=== PATIENT | male | born 1945 | race Caucasian/White ===

== ENCOUNTER 2020-11-11 19:05 | Inpatient (IN) | payer MEDICARE ==
[2020-11-11 19:46] LABS: #Monocytes 0.2 10x3/uL (0.0-1.1); #Neutrophils 11.2 10x3/uL (1.5-8.4); %Basophils 0.3 % (0.0-2.0); %Eosinophils 0.1 % (0.0-6.0); %Monocytes 1.2 % (0.0-10.0); Hemoglobin 15.2 g/dL (13.5-17.5); Mean Corpuscular HGB CONC 33.5 g/dL (32.0-36.0); Mean Corpuscular Hemoglobin 33.7 pg (27.0-33.0); Mean Corpuscular Volume 100.7 fl (81.2-95.1); Mean Platelet Volume 9.8 fl (7.4-10.4); Platelet Count 143 10x3/uL (150-450); RBC Distribution Width 16.7 % (11.5-14.5); Red Blood Cell (RBC) Count 4.51 10x6/uL (4.32-5.72); White Blood Cell (WBC) Count 12.1 10x3/uL (3.5-10.5)
[2020-11-11] MEDS ORDERED: Furosemide 100 MG/10 ML VIAL ONE (19:47)
[2020-11-11] MEDS ORDERED: Diltiazem 125 MG/25 ML ONE (19:48)
[2020-11-11 19:53] LABS: Actual Bicarbonate (HCO3v) 19 mEq/L (22-28); Base Excess -5.3 mEq/L (-2.0 to +3.0); Chloride (VBG) 106 mmol/L (98-106); Hemoglobin (Hb) 16.2 g/dL (12.6-17.4); Potassium (VBG) 4.44 mmol/L (3.70-5.30); Puncture Site Other Site; Sodium 137.9 mmol/L (133-146); pH (venous) 7.37 (7.32-7.43)
[2020-11-11 19:58] LABS: ALT (SGPT) Less than 6 U/L (8-55); AST (SGOT) 30 U/L (5-34); Albumin 3.2 g/dL (3.4-4.8); Alkaline Phosphatase 182 U/L (40-110); Anion Gap 18 mmol/L (10-20); BUN (Urea Nitrogen) 17 mg/dL (8.4-25.7); Calc. Creatinine Clearance 0 mL/min (70-130); Calcium 8.9 mg/dL (7.8-10.44); Carbon Dioxide 17 mmol/L (23-31); Chloride 107 mmol/L (98-107); Globulin 3.9 g/dL (2.4-3.5); Glucose 99 mg/dL (83-110); Potassium 4.6 mmol/L (3.5-5.1); Protein, Total 7.1 g/dL (5.8-8.1); Sodium 137 mmol/L (136-145)
[2020-11-11] MEDS ORDERED: cefTRIAXone\\ROCEPHIN 2 GM VIAL ONE (19:59)
[2020-11-11] MEDS ORDERED: Nitroglycerin 2% Ointment 1 INCH/1 GM Packet ONE (19:59)
[2020-11-11] MEDS ORDERED: Azithromycin 500 MG VIAL ONE (19:59)
[2020-11-11 20:28] LABS: INR-International Normal Ratio 1.3; PTT 26.7 sec (22.0-33.0); Prothrombin Time 13.9 sec (9.5-12.1)
[2020-11-11 20:49] LABS: SARS-CoV-2 NAA Rapid Test Not Detected (NotDetected)
[2020-11-11] MEDS ORDERED: Vancomycin HCl 500 MG VIAL ONE (20:52)
[2020-11-11 21:07] LABS: Bilirubin Neg (Negative); Blood, Urine 10 (Negative); Clarity Clear (Clear); Glucose, Urine (Dipstick) Normal (Negative); Ketone, Urine Negative (Negative); Leukocyte 25 (Negative); Nitrite Negative (Negative); Protein, Urine (Dipstick) Negative (Neg-Trace); Specific Gravity, Urine 1.015 (1.002-1.036); Urobilinogen Normal mg/dL (Less than 2)
[2020-11-11 21:14] LABS: Bacteria/HPF Rare-Few HPF (None Seen); Mucous/LPF Rare LPF (<2+); RBC/HPF 0-3 HPF (0-3); Squamous Epithelial 0-3 HPF (0-3)
[2020-11-11 23:07] LABS: Lactic Acid 3.4 mmol/L (0.5-2.2)
[2020-11-11] MEDS ORDERED: Lidocaine Viscous Sol 2% 15 ml UD Cup ONE (23:11)
[2020-11-12] MEDS ORDERED: Diltiazem 125 MG in Sodium Chloride 0.9% 100 ML IVPB SCH (02:00)
[2020-11-12] MEDS ORDERED: Carbidopa/Levodopa 25-100 mg Tablet PO SCH (03:45)
[2020-11-12 04:01] VITALS: BMI 22.1
[2020-11-12] MEDS ORDERED: Cefepime 2 GM VIAL ONE ×2 (04:57→13:38)
[2020-11-12] MEDS: Cefepime 2 GM in Sodium Chloride 0.9% 100 ML IVPB SCH ×3 (05:00→20:24)
[2020-11-12 05:19] LABS: Magnesium 1.5 mg/dL (1.6-2.6)
[2020-11-12 05:21] LABS: Anion Gap 16 mmol/L (10-20); BUN (Urea Nitrogen) 17 mg/dL (8.4-25.7); Calc. Creatinine Clearance 75 mL/min (70-130); Calcium 8.4 mg/dL (7.8-10.44); Carbon Dioxide 17 mmol/L (23-31); Chloride 112 mmol/L (98-107); Glucose 83 mg/dL (83-110); Potassium 3.7 mmol/L (3.5-5.1); Sodium 141 mmol/L (136-145)
[2020-11-12 05:28] LABS: Troponin I 0.043 ng/mL (< 0.028)
[2020-11-12] MEDS ORDERED: Magnesium Sulfate/D5W 1 GM/100 ML BAG IVPB SCH (05:45)
[2020-11-12 05:48] LABS: Hemoglobin 13.3 g/dL (13.5-17.5); Mean Corpuscular HGB CONC 34.1 g/dL (32.0-36.0); Mean Corpuscular Volume 99.7 fl (81.2-95.1); Platelet Count 118 10x3/uL (150-450); RBC Distribution Width 16.6 % (11.5-14.5); Red Blood Cell (RBC) Count 3.91 10x6/uL (4.32-5.72); White Blood Cell (WBC) Count 22.9 10x3/uL (3.5-10.5)
[2020-11-12] MEDS ORDERED: Enoxaparin Sodium 80 MG/0.8 ML SYRINGE ONE (06:06)
[2020-11-12] MEDS: Enoxaparin Sodium 80 MG/0.8 ML SYRINGE SC SCH ×2 (06:15→17:18)
[2020-11-12] MEDS ORDERED: Melatonin 3 MG TAB PO SCH (06:30)
[2020-11-12 07:51] LABS: Lactic Acid 2.2 mmol/L (0.5-2.2)
[2020-11-12 08:01] LABS: Band 30 % (5-11); Monocytes 2 % (0-10)
[2020-11-12 08:02] LABS: Lymphocytes 1 % (21-51)
[2020-11-12 08:03] LABS: Burr Cells SLIGHT = 2-5 cells (100X) (0-1/hpf); Crenated RBC MODERATE= 6-15 cells (100X) (None Seen); Neutrophil 67 % (42-75); Poikilocytosis MODERATE=16-30 cells (100X) (0-5/hpf)
[2020-11-12 08:04] LABS: Large Platelets SLIGHT; Platelet Morphology Comment Appears Decreased; Toxic Granulation SLIGHT
[2020-11-12 08:07] LABS: MDiff Complete? YES; Manual Diff?? YES
[2020-11-12] MEDS ORDERED: Enoxaparin Sodium 40 MG/0.4 ML SYRINGE SC SCH (09:00)
[2020-11-12] MEDS ORDERED: Famotidine/PF 20 mg/2ml Vial ONE (09:26)
[2020-11-12] MEDS: Carbidopa/Levodopa CR 50-200 mg Tablet PO SCH ×3 (09:30→22:16)
[2020-11-12] MEDS: Famotidine/PF 20 mg/2ml Vial SLOW IVP SCH ×2 (09:30→20:24)
[2020-11-12] MEDS: Vancomycin HCl 1 GM in Sodium Chloride 0.9% 250 ML 250 ML IVPB SCH ×2 (10:35→22:15)
[2020-11-12] MEDS ORDERED: Metoprolol Tartrate 25 MG TAB ONE (11:41)
[2020-11-12] MEDS ORDERED: Metoprolol Tartrate 25 MG TAB PO SCH (11:45)
[2020-11-12] MEDS: Metoprolol Tartrate 25 MG TAB PO SCH (20:24)
[2020-11-13] MEDS: Cefepime 2 GM in Sodium Chloride 0.9% 100 ML IVPB SCH ×3 (04:41→19:53)
[2020-11-13 06:03] LABS: #Monocytes 0.5 10x3/uL (0.0-1.1); #Neutrophils 16.9 10x3/uL (1.5-8.4); %Basophils 0.2 % (0.0-2.0); %Eosinophils 0.1 % (0.0-6.0); %Lymphocytes 5.2 % (18.0-47.0); %Monocytes 2.7 % (0.0-10.0); %Neutrophils 91.1 % (40.0-75.0); Hemoglobin 14.9 g/dL (13.5-17.5); Mean Corpuscular HGB CONC 33.7 g/dL (32.0-36.0); Mean Corpuscular Hemoglobin 33.9 pg (27.0-33.0); Mean Corpuscular Volume 100.7 fl (81.2-95.1); Mean Platelet Volume 10.3 fl (7.4-10.4); Platelet Count 117 10x3/uL (150-450); Red Blood Cell (RBC) Count 4.39 10x6/uL (4.32-5.72); White Blood Cell (WBC) Count 18.5 10x3/uL (3.5-10.5)
[2020-11-13] MEDS ORDERED: Furosemide 20 MG/2 ML VIAL ONE (06:26)
[2020-11-13 06:29] LABS: Anion Gap 16 mmol/L (10-20); BUN (Urea Nitrogen) 23 mg/dL (8.4-25.7); Calc. Creatinine Clearance 70 mL/min (70-130); Calcium 8.8 mg/dL (7.8-10.44); Carbon Dioxide 17 mmol/L (23-31); Chloride 113 mmol/L (98-107); Glucose 109 mg/dL (83-110); Potassium 3.6 mmol/L (3.5-5.1); Sodium 142 mmol/L (136-145)
[2020-11-13] MEDS: Furosemide 40 MG/4 ML VIAL SLOW IVP SCH ×2 (06:29→15:10)
[2020-11-13] MEDS: Enoxaparin Sodium 80 MG/0.8 ML SYRINGE SC SCH ×2 (06:29→17:31)
[2020-11-13 08:48] LABS: Vancomycin, Trough 7.2 ug/mL
[2020-11-13] MEDS ORDERED: Potassium Chloride 20 MEQ TAB PO SCH (09:45)
[2020-11-13] MEDS: Metoprolol Tartrate 25 MG TAB PO SCH ×2 (10:55→20:02)
[2020-11-13] MEDS: Vancomycin HCl 1 GM in Sodium Chloride 0.9% 250 ML 250 ML IVPB SCH ×2 (10:56→20:01)
[2020-11-13] MEDS: Famotidine/PF 20 mg/2ml Vial SLOW IVP SCH ×2 (10:56→20:01)
[2020-11-13] MEDS: Carbidopa/Levodopa CR 50-200 mg Tablet PO SCH ×3 (11:05→20:01)
[2020-11-13 14:24] LABS: Magnesium 2.3 mg/dL (1.6-2.6)
[2020-11-13] MEDS ORDERED: Metoprolol Tartrate 25 MG TAB PO SCH ×2 (16:30→21:00)
[2020-11-13] MEDS: Apixaban 5 MG TAB PO SCH (20:02)
[2020-11-13] MEDS: Levofloxacin 750 mg/D5W 500 MG in Premix Bag 1 BAG IVPB SCH (23:52)
[2020-11-14] MEDS: Cefepime 2 GM in Sodium Chloride 0.9% 100 ML IVPB SCH ×3 (04:38→21:00)
[2020-11-14] MEDS ORDERED: Furosemide 20 MG/2 ML VIAL SLOW IVP SCH (06:00)
[2020-11-14] MEDS ORDERED: Spironolactone 25 MG TAB PO SCH (08:00)
[2020-11-14] MEDS: Vancomycin HCl 1 GM in Sodium Chloride 0.9% 250 ML 250 ML IVPB SCH ×2 (08:45→22:28)
[2020-11-14] MEDS: Famotidine 20 MG TAB PO SCH ×2 (08:45→21:02)
[2020-11-14] MEDS: Carbidopa/Levodopa CR 50-200 mg Tablet PO SCH ×3 (08:46→21:03)
[2020-11-14] MEDS: Spironolactone 25 MG TAB PO SCH (08:46)
[2020-11-14] MEDS: Metoprolol Tartrate 25 MG TAB PO SCH ×2 (08:46→22:28)
[2020-11-14] MEDS: Apixaban 5 MG TAB PO SCH ×2 (08:46→21:02)
[2020-11-14] MEDS: Potassium Chloride 20 MEQ TAB PO SCH ×2 (08:46→21:01)
[2020-11-14 08:48] LABS: #Eosinphils 0.1 10x3/uL (0.0-0.5); #Monocytes 0.3 10x3/uL (0.0-1.1); #Neutrophils 9.5 10x3/uL (1.5-8.4); %Basophils 0.4 % (0.0-2.0); %Eosinophils 0.6 % (0.0-6.0); %Lymphocytes 11.1 % (18.0-47.0); %Monocytes 2.8 % (0.0-10.0); %Neutrophils 84.7 % (40.0-75.0); Hemoglobin 14.8 g/dL (13.5-17.5); Mean Corpuscular HGB CONC 34.1 g/dL (32.0-36.0); Mean Corpuscular Hemoglobin 34.3 pg (27.0-33.0); Mean Corpuscular Volume 100.7 fl (81.2-95.1); Mean Platelet Volume 10.3 fl (7.4-10.4); Platelet Count 127 10x3/uL (150-450); RBC Distribution Width 17.2 % (11.5-14.5); Red Blood Cell (RBC) Count 4.31 10x6/uL (4.32-5.72); White Blood Cell (WBC) Count 11.3 10x3/uL (3.5-10.5)
[2020-11-14 08:54] LABS: Vancomycin, Trough 13.2 ug/mL
[2020-11-14 08:55] LABS: Anion Gap 17 mmol/L (10-20); BUN (Urea Nitrogen) 28 mg/dL (8.4-25.7); Calc. Creatinine Clearance 56 mL/min (70-130); Carbon Dioxide 20 mmol/L (23-31); Chloride 109 mmol/L (98-107); Glucose 92 mg/dL (83-110); Potassium 3.9 mmol/L (3.5-5.1); Sodium 142 mmol/L (136-145)
[2020-11-14] MEDS ORDERED: Metoprolol Tartrate 5 MG/5 ML VIAL IVP PRN (10:52)
[2020-11-14] MEDS ORDERED: Melatonin 3 MG TAB PO PRN (21:00)
[2020-11-15] MEDS: Levofloxacin 750 mg/D5W 500 MG in Premix Bag 1 BAG IVPB SCH (00:34)
[2020-11-15] MEDS: Cefepime 2 GM in Sodium Chloride 0.9% 100 ML IVPB SCH ×3 (04:02→20:23)
[2020-11-15] MEDS: Spironolactone 25 MG TAB PO SCH (08:15)
[2020-11-15] MEDS: Apixaban 5 MG TAB PO SCH ×2 (08:15→20:27)
[2020-11-15] MEDS: Famotidine 20 MG TAB PO SCH ×2 (08:15→20:27)
[2020-11-15] MEDS: Carbidopa/Levodopa CR 50-200 mg Tablet PO SCH ×3 (08:15→21:17)
[2020-11-15] MEDS: Metoprolol Tartrate 25 MG TAB PO SCH ×2 (08:15→20:32)
[2020-11-15] MEDS: Potassium Chloride 20 MEQ TAB PO SCH ×2 (08:15→18:17)
[2020-11-15] MEDS: Vancomycin HCl 1 GM in Sodium Chloride 0.9% 250 ML 250 ML IVPB SCH ×2 (08:16→20:25)
[2020-11-15 10:46] LABS: Potassium 3.9 mmol/L (3.5-5.1)
[2020-11-15] MEDS: Furosemide 40 MG TAB PO SCH (14:19)
[2020-11-16] MEDS: Levofloxacin 750 mg/D5W 500 MG in Premix Bag 1 BAG IVPB SCH (00:36)
[2020-11-16] MEDS: Cefepime 2 GM in Sodium Chloride 0.9% 100 ML IVPB SCH ×3 (04:58→20:37)
[2020-11-16] MEDS ORDERED: Cefepime 2 GM VIAL ONE (04:58)
[2020-11-16] MEDS: Acetaminophen 325 MG TAB PO PRN ×2 (06:29→14:10)
[2020-11-16 08:17] LABS: Vancomycin, Trough 19.4 ug/mL
[2020-11-16] MEDS: Potassium Chloride 20 MEQ TAB PO SCH ×2 (08:22→18:07)
[2020-11-16] MEDS: Apixaban 5 MG TAB PO SCH ×2 (08:23→20:42)
[2020-11-16] MEDS: Carbidopa/Levodopa CR 50-200 mg Tablet PO SCH ×3 (08:23→20:37)
[2020-11-16] MEDS: Spironolactone 25 MG TAB PO SCH (08:23)
[2020-11-16] MEDS: Metoprolol Tartrate 25 MG TAB PO SCH ×2 (08:23→20:43)
[2020-11-16] MEDS: Vancomycin HCl 1 GM in Sodium Chloride 0.9% 250 ML 250 ML IVPB SCH ×2 (08:23→20:51)
[2020-11-16] MEDS: Famotidine 20 MG TAB PO SCH ×2 (08:23→20:43)
[2020-11-16] MEDS: Furosemide 40 MG TAB PO SCH (14:11)
[2020-11-16] MEDS ORDERED: Sodium Chloride 0.9% 250 ML 250 ML ONE (20:43)
[2020-11-17] MEDS: Levofloxacin 750 mg/D5W 500 MG in Premix Bag 1 BAG IVPB SCH (00:40)
[2020-11-17 01:56] LABS: Legionella Urinary Ag Negative (Negative); Strep pneumo Urine Ag NEGATIVE (NEGATIVE)
[2020-11-17] MEDS: Cefepime 2 GM in Sodium Chloride 0.9% 100 ML IVPB SCH ×3 (04:09→20:46)
[2020-11-17 06:23] LABS: ALT (SGPT) Less than 6 U/L (8-55); AST (SGOT) 26 U/L (5-34); Albumin 2.5 g/dL (3.4-4.8); Alkaline Phosphatase 137 U/L (40-110); Anion Gap 14 mmol/L (10-20); BUN (Urea Nitrogen) 29 mg/dL (8.4-25.7); Bilirubin, Total 1.5 mg/dL (0.2-1.2); Calc. Creatinine Clearance 63 mL/min (70-130); Calcium 8.6 mg/dL (7.8-10.44); Carbon Dioxide 18 mmol/L (23-31); Chloride 112 mmol/L (98-107); Globulin 3.2 g/dL (2.4-3.5); Glucose 104 mg/dL (83-110); Potassium 3.6 mmol/L (3.5-5.1); Protein, Total 5.7 g/dL (5.8-8.1); Sodium 140 mmol/L (136-145)
[2020-11-17 06:56] LABS: #Eosinphils 0.2 10x3/uL (0.0-0.5); #Monocytes 0.5 10x3/uL (0.0-1.1); #Neutrophils 5.9 10x3/uL (1.5-8.4); %Basophils 0.5 % (0.0-2.0); %Eosinophils 2.2 % (0.0-6.0); %Lymphocytes 13.8 % (18.0-47.0); %Monocytes 6.9 % (0.0-10.0); %Neutrophils 75.6 % (40.0-75.0); Hemoglobin 14.9 g/dL (13.5-17.5); Mean Corpuscular HGB CONC 33.6 g/dL (32.0-36.0); Mean Corpuscular Hemoglobin 33.8 pg (27.0-33.0); Mean Corpuscular Volume 100.7 fl (81.2-95.1); Mean Platelet Volume 10.4 fl (7.4-10.4); Platelet Count 108 10x3/uL (150-450); RBC Distribution Width 16.6 % (11.5-14.5); Red Blood Cell (RBC) Count 4.41 10x6/uL (4.32-5.72); White Blood Cell (WBC) Count 7.8 10x3/uL (3.5-10.5)
[2020-11-17] MEDS: Carbidopa/Levodopa CR 50-200 mg Tablet PO SCH ×3 (08:06→20:47)
[2020-11-17] MEDS: Apixaban 5 MG TAB PO SCH ×2 (08:06→20:47)
[2020-11-17] MEDS: Famotidine 20 MG TAB PO SCH ×2 (08:06→20:47)
[2020-11-17] MEDS: Spironolactone 25 MG TAB PO SCH (08:06)
[2020-11-17] MEDS: Metoprolol Tartrate 25 MG TAB PO SCH ×2 (08:06→20:47)
[2020-11-17] MEDS: Acetaminophen 325 MG TAB PO PRN ×2 (08:07→14:03)
[2020-11-17] MEDS: Vancomycin HCl 1 GM in Sodium Chloride 0.9% 250 ML 250 ML IVPB SCH ×2 (08:08→20:46)
[2020-11-17] MEDS: Potassium Chloride 20 MEQ TAB PO SCH ×2 (08:11→18:37)
[2020-11-17] MEDS: Furosemide 40 MG TAB PO SCH (14:08)
[2020-11-18] MEDS: Levofloxacin 750 mg/D5W 500 MG in Premix Bag 1 BAG IVPB SCH ×2 (00:27→23:24)
[2020-11-18] MEDS: Cefepime 2 GM in Sodium Chloride 0.9% 100 ML IVPB SCH ×3 (03:50→21:22)
[2020-11-18] MEDS: Acetaminophen 325 MG TAB PO PRN ×2 (03:50→10:33)
[2020-11-18] MEDS: Potassium Chloride 20 MEQ TAB PO SCH ×2 (10:27→17:21)
[2020-11-18] MEDS: Spironolactone 25 MG TAB PO SCH (10:28)
[2020-11-18] MEDS: Carbidopa/Levodopa CR 50-200 mg Tablet PO SCH ×3 (10:28→21:22)
[2020-11-18] MEDS: Apixaban 5 MG TAB PO SCH ×2 (10:29→21:22)
[2020-11-18] MEDS: Metoprolol Tartrate 25 MG TAB PO SCH ×2 (10:29→21:21)
[2020-11-18] MEDS: Famotidine 20 MG TAB PO SCH ×2 (10:29→21:22)
[2020-11-18] MEDS: Furosemide 40 MG TAB PO SCH (12:36)
[2020-11-19] MEDS: Cefepime 2 GM in Sodium Chloride 0.9% 100 ML IVPB SCH ×2 (04:11→11:37)
[2020-11-19] MEDS: Metoprolol Tartrate 25 MG TAB PO SCH ×2 (11:35→20:45)
[2020-11-19] MEDS: Apixaban 5 MG TAB PO SCH ×2 (11:35→20:45)
[2020-11-19] MEDS: Spironolactone 25 MG TAB PO SCH (11:36)
[2020-11-19] MEDS: Potassium Chloride 20 MEQ TAB PO SCH ×2 (11:36→16:00)
[2020-11-19] MEDS: Famotidine 20 MG TAB PO SCH ×2 (11:36→20:45)
[2020-11-19] MEDS: Furosemide 40 MG TAB PO SCH (11:37)
[2020-11-19] MEDS: Carbidopa/Levodopa CR 50-200 mg Tablet PO SCH ×3 (11:38→20:45)
[2020-11-19 11:50] LABS: Anion Gap 12 mmol/L (10-20); BUN (Urea Nitrogen) 28 mg/dL (8.4-25.7); Calc. Creatinine Clearance 62 mL/min (70-130); Calcium 8.6 mg/dL (7.8-10.44); Carbon Dioxide 20 mmol/L (23-31); Chloride 109 mmol/L (98-107); Glucose 154 mg/dL (83-110); Magnesium 1.9 mg/dL (1.6-2.6); Potassium 3.6 mmol/L (3.5-5.1); Sodium 137 mmol/L (136-145)
[2020-11-20] MEDS: Acetaminophen 325 MG TAB PO PRN (06:30)
[2020-11-20] MEDS ORDERED: Potassium Chloride 20 MEQ TAB PO SCH (09:30)
[2020-11-20] MEDS: Apixaban 5 MG TAB PO SCH (09:55)
[2020-11-20] MEDS: Potassium Chloride 20 MEQ TAB PO SCH ×2 (09:57→17:37)
[2020-11-20] MEDS: Carbidopa/Levodopa CR 50-200 mg Tablet PO SCH ×2 (09:57→13:57)
[2020-11-20] MEDS: Famotidine 20 MG TAB PO SCH (09:58)
[2020-11-20] MEDS: Spironolactone 25 MG TAB PO SCH (09:58)
[2020-11-20] MEDS: Metoprolol Tartrate 25 MG TAB PO SCH (09:59)
[2020-11-20 12:13] VITALS: BP 103/72; TEMP 98.9
[2020-11-20] MEDS: Furosemide 40 MG TAB PO SCH (13:57)
== END 2020-11-20 19:28 | disposition home or self-care (01) | DRG 871 ==
LOC: CSHERS 19:05 → CSHERHOLD 11-12 03:27 → OBSVTOIN 11-12 03:28 → CSHTELE 11-12 16:33
PROVIDERS: ADMIT Family Medicine; ATTEND Family Medicine
DX: A41.9 Sepsis, unspecified organism (principal); J18.9 Pneumonia, unspecified organism; I50.23 Acute on chronic systolic (congestive) heart failure; D84.9 Immunodeficiency, unspecified; N50.89 Other specified disorders of the male genital organs; G20 Parkinson's disease; Z88.2 Allergy status to sulfonamides; Z88.8 Allergy status to other drugs, medicaments and biological substances; M06.9 Rheumatoid arthritis, unspecified; I48.91 Unspecified atrial fibrillation; I11.0 Hypertensive heart disease with heart failure; G25.81 Restless legs syndrome; R65.20 Severe sepsis without septic shock; Z20.822 Contact with and (suspected) exposure to COVID-19
CPT/HCPCS: 0240U; 36415; 71045; 71275; 76870; 80048; 80053; 80202; 81003; 81015; 82565; 82805; 83605; 83735; 83880; 84132; 84145; 84443; 84484; 84520; 85025; 85610; 85730; 86850; 86900; 86901; 87040; 87086; 87449; 87899; 93005; 93010; 93306; 94660; 94760; 96365; 96366; 96368; 96375; 96376; 99292; J0456; J0692; J0696; J1650; J1940; J1956; J3370; J3475; J3490; J7050; S0028

== ENCOUNTER 2021-01-09 09:17 | Outpatient (CLI) | payer MEDICARE | END 2021-01-09 09:18 | disposition home or self-care (01) | LOC: CSHWCC 09:17 | PROVIDERS: ATTEND Nurse Practitioner Family | DX: I87.332 Chronic venous hypertension (idiopathic) with ulcer and inflammation of left lower extremity (principal); L97.222 Non-pressure chronic ulcer of left calf with fat layer exposed; R60.0 Localized edema; B35.1 Tinea unguium; G20 Parkinson's disease; G90.09 Other idiopathic peripheral autonomic neuropathy; I48.0 Paroxysmal atrial fibrillation; I50.22 Chronic systolic (congestive) heart failure; I87.2 Venous insufficiency (chronic) (peripheral); I89.0 Lymphedema, not elsewhere classified; M06.4 Inflammatory polyarthropathy | CPT/HCPCS: 97139; G0463; 99213 ==

== ENCOUNTER 2021-02-13 09:36 | Outpatient (CLI) | payer MEDICARE | END 2021-02-13 09:37 | disposition home or self-care (01) | LOC: CSHWCC 09:36 | PROVIDERS: ATTEND Nurse Practitioner Family | DX: I87.332 Chronic venous hypertension (idiopathic) with ulcer and inflammation of left lower extremity (principal); B35.1 Tinea unguium; G20 Parkinson's disease; G90.09 Other idiopathic peripheral autonomic neuropathy; I48.0 Paroxysmal atrial fibrillation; I50.22 Chronic systolic (congestive) heart failure; I87.2 Venous insufficiency (chronic) (peripheral); L97.222 Non-pressure chronic ulcer of left calf with fat layer exposed; I89.0 Lymphedema, not elsewhere classified; M06.4 Inflammatory polyarthropathy; R60.0 Localized edema | CPT/HCPCS: 97139; G0463; 99213 ==